=== PATIENT | female | born 1950 | race Caucasian/White ===

== ENCOUNTER 2019-10-15 14:11 | Inpatient (IN) ==
[2019-10-15] MEDS ORDERED: *HR* Warfarin 5 MG TABLET PO SCH (19:00)
[2019-10-15] MEDS: amLODIPine 5 MG TABLET PO SCH (20:25)
[2019-10-15] MEDS: *HR* Metformin 500 MG TABLET PO SCH (20:25)
[2019-10-15] MEDS: Gabapentin 300 MG CAPSULE PO SCH (20:25)
[2019-10-15] MEDS: Acetaminophen 325 MG TABLET PO PRN (20:50)
[2019-10-15] MEDS ORDERED: Insulin DETEMIR 100 UNIT/ML per UNIT SQ ONE ×2 (21:00)
[2019-10-16] MEDS: Acetaminophen 325 MG TABLET PO PRN (05:57)
[2019-10-16 06:22] LABS: Basophils % 0.5 %; Eosinophils # 0.2 K/mcL (0.0-0.6); Eosinophils % 2.7 %; Hematocrit 30.3 % (35.3-44.9); Hemoglobin 10.2 g/dL (11.5-15.4); Immature Granulocytes % 0.4 % (0-4); Lymphocytes # 2.9 K/mcL (0.6-4.6); Lymphocytes % 39.6 %; Mean Corpuscular HGB Conc 33.7 g/dL (31.6-35.5); Mean Corpuscular Hemoglobin 31.5 pg (28.0-33.3); Mean Corpuscular Volume 93.5 fL (83.0-100.0); Mean Platelet Volume 10.2 fL (9.4-12.4); Monocytes # 0.6 K/mcL (0.0-1.3); Monocytes % 8.3 %; Neutrophils # 3.6 K/mcL (1.6-8.9); Platelet Count 243 K/mcL (140-400); Red Blood Count 3.24 M/mcL (3.82-4.97); Red Cell Distribution Width 11.8 % (11.5-14.5); Segmented Neutrophils % 48.5 %; White Blood Count 7.4 K/mcL (4.3-11.1)
[2019-10-16 06:29] LABS: INR 1.3; Prothrombin Time 14.4 Seconds (9.4-12.1)
[2019-10-16 06:42] LABS: Calcium 8.8 mg/dL (8.6-10.3); Potassium 4.8 mEq/L (3.5-5.1)
[2019-10-16] MEDS: *HR* Metformin 500 MG TABLET PO SCH ×2 (08:52→16:58)
[2019-10-16] MEDS: Gabapentin 300 MG CAPSULE PO SCH ×2 (08:52→20:55)
[2019-10-16] MEDS: Lisinopril 20 MG TABLET PO SCH (08:52)
[2019-10-16] MEDS: Isosorbide MONOnitrate (24 HR) 60 MG TAB.ER.24H PO SCH (08:52)
[2019-10-16] MEDS: Insulin DETEMIR 100 UNIT/ML X5UNITS SQ SCH ×2 (08:54→20:55)
[2019-10-16] MEDS: (Ezetimibe 10 MG) PO SCH (09:06)
[2019-10-16] MEDS: *HR* Enoxaparin 100 MG/ML SYRINGE SQ SCH (16:57)
[2019-10-16] MEDS ORDERED: Warfarin perPT PO PRN (18:00)
[2019-10-16] MEDS ORDERED: *HR* Warfarin 5 MG TABLET PO ONE (18:00)
[2019-10-16] MEDS: amLODIPine 5 MG TABLET PO SCH (20:54)
[2019-10-16] MEDS ORDERED: Insulin DETEMIR 100 UNIT/ML X5UNITS SQ SCH (21:00)
[2019-10-17] MEDS: *HR* Enoxaparin 100 MG/ML SYRINGE SQ SCH ×2 (05:55→17:02)
[2019-10-17 06:45] LABS: INR 1.6; Prothrombin Time 17.9 Seconds (9.4-12.1)
[2019-10-17] MEDS ORDERED: D5% in Water 1,000 ML IVC PRN (07:10)
[2019-10-17] MEDS ORDERED: *HR* Dextrose 50 % in Water (Syg) 50 ML SYRINGE IVP PRN (07:10)
[2019-10-17] MEDS ORDERED: Dextrose Gel 15 GM/37.5 ML TUBE PO PRN ×2 (07:10)
[2019-10-17] MEDS: Isosorbide MONOnitrate (24 HR) 60 MG TAB.ER.24H PO SCH (09:52)
[2019-10-17] MEDS: Gabapentin 300 MG CAPSULE PO SCH ×2 (09:52→21:43)
[2019-10-17] MEDS: Insulin DETEMIR 100 UNIT/ML X5UNITS SQ SCH ×2 (09:53→21:43)
[2019-10-17] MEDS: Lisinopril 20 MG TABLET PO SCH (09:53)
[2019-10-17] MEDS: Insulin LISPRO 300 UNITS/3 ML VIAL SQ SCH ×5 (11:20→21:43)
[2019-10-17] MEDS: (Ezetimibe 10 MG) PO SCH (11:21)
[2019-10-17] MEDS ORDERED: *HR* Warfarin 5 MG TABLET PO ONE (18:00)
[2019-10-17] MEDS: amLODIPine 5 MG TABLET PO SCH (21:42)
[2019-10-18] MEDS: *HR* Enoxaparin 100 MG/ML SYRINGE SQ SCH ×2 (05:32→17:16)
[2019-10-18 07:21] LABS: INR 1.9; Prothrombin Time 21.6 Seconds (9.4-12.1)
[2019-10-18] MEDS: Insulin LISPRO 300 UNITS/3 ML VIAL SQ SCH ×4 (08:05→22:15)
[2019-10-18] MEDS: Isosorbide MONOnitrate (24 HR) 60 MG TAB.ER.24H PO SCH (08:14)
[2019-10-18] MEDS: Lisinopril 20 MG TABLET PO SCH (08:14)
[2019-10-18] MEDS: Gabapentin 300 MG CAPSULE PO SCH ×2 (08:14→22:14)
[2019-10-18] MEDS: (Ezetimibe 10 MG) PO SCH (09:19)
[2019-10-18] MEDS: Insulin DETEMIR 100 UNIT/ML X5UNITS SQ SCH ×2 (11:54→22:14)
[2019-10-18] MEDS ORDERED: *HR* Warfarin 5 MG TABLET PO ONE (18:00)
[2019-10-18] MEDS ORDERED: *HR* Warfarin 3 MG TABLET PO SCH (18:00)
[2019-10-18] MEDS: amLODIPine 5 MG TABLET PO SCH (22:14)
[2019-10-19 05:54] LABS: INR 1.8
[2019-10-19] MEDS: *HR* Enoxaparin 100 MG/ML SYRINGE SQ SCH ×2 (06:33→17:36)
[2019-10-19] MEDS: Insulin LISPRO 300 UNITS/3 ML VIAL SQ SCH ×4 (07:28→20:04)
[2019-10-19] MEDS ORDERED: *HR* Dextrose 50 % in Water (Vial) 50 ML VIAL IVP PRN (08:00)
[2019-10-19] MEDS: (Ezetimibe 10 MG) PO SCH (09:52)
[2019-10-19] MEDS: Insulin DETEMIR 100 UNIT/ML X5UNITS SQ SCH ×2 (09:52→20:03)
[2019-10-19] MEDS: Gabapentin 300 MG CAPSULE PO SCH ×2 (09:52→20:03)
[2019-10-19] MEDS: Isosorbide MONOnitrate (24 HR) 60 MG TAB.ER.24H PO SCH (09:52)
[2019-10-19] MEDS: Lisinopril 20 MG TABLET PO SCH (09:52)
[2019-10-19] MEDS ORDERED: *HR* Warfarin 5 MG TABLET PO ONE (18:00)
[2019-10-19] MEDS: amLODIPine 5 MG TABLET PO SCH (20:03)
[2019-10-20 05:05] LABS: Hematocrit 28.3 % (35.3-44.9); Hemoglobin 9.7 g/dL (11.5-15.4); Mean Corpuscular HGB Conc 34.3 g/dL (31.6-35.5); Mean Corpuscular Volume 93.4 fL (83.0-100.0); Mean Platelet Volume 10.7 fL (9.4-12.4); Platelet Count 215 K/mcL (140-400); Red Blood Count 3.03 M/mcL (3.82-4.97); Red Cell Distribution Width 12.1 % (11.5-14.5)
[2019-10-20 05:14] LABS: Prothrombin Time 23.1 Seconds (9.4-12.1)
[2019-10-20] MEDS: *HR* Enoxaparin 100 MG/ML SYRINGE SQ SCH ×3 (06:07→23:25)
[2019-10-20 07:48] LABS: Calcium 8.7 mg/dL (8.6-10.3); Potassium 4.7 mEq/L (3.5-5.1)
[2019-10-20] MEDS: Insulin LISPRO 300 UNITS/3 ML VIAL SQ SCH ×4 (08:18→20:11)
[2019-10-20] MEDS: Insulin DETEMIR 100 UNIT/ML X5UNITS SQ SCH ×2 (08:38→20:11)
[2019-10-20] MEDS: Gabapentin 300 MG CAPSULE PO SCH ×2 (09:26→20:10)
[2019-10-20] MEDS: Lisinopril 20 MG TABLET PO SCH (09:26)
[2019-10-20] MEDS: Isosorbide MONOnitrate (24 HR) 60 MG TAB.ER.24H PO SCH (09:26)
[2019-10-20] MEDS: (Ezetimibe 10 MG) PO SCH (09:26)
[2019-10-20 14:41] LABS: Hematocrit 29.9 % (35.3-44.9); Hemoglobin 10.1 g/dL (11.5-15.4)
[2019-10-20] MEDS: Sulfamethoxazole/Trimeth DS 1 EACH TABLET PO SCH ×2 (17:20→20:14)
[2019-10-20] MEDS ORDERED: *HR* Warfarin 5 MG TABLET PO ONE (18:00)
[2019-10-20] MEDS: amLODIPine 5 MG TABLET PO SCH (20:10)
[2019-10-21 06:52] LABS: Hematocrit 28.6 % (35.3-44.9); Hemoglobin 9.7 g/dL (11.5-15.4); Mean Corpuscular HGB Conc 33.9 g/dL (31.6-35.5); Mean Corpuscular Hemoglobin 31.5 pg (28.0-33.3); Mean Corpuscular Volume 92.9 fL (83.0-100.0); Platelet Count 237 K/mcL (140-400); Red Blood Count 3.08 M/mcL (3.82-4.97); Red Cell Distribution Width 12.2 % (11.5-14.5); White Blood Count 6.9 K/mcL (4.3-11.1)
[2019-10-21 07:00] LABS: INR 2.1; Prothrombin Time 23.5 Seconds (9.4-12.1)
[2019-10-21 07:11] LABS: Calcium 8.6 mg/dL (8.6-10.3); Potassium 4.7 mEq/L (3.5-5.1)
[2019-10-21] MEDS: Insulin LISPRO 300 UNITS/3 ML VIAL SQ SCH ×4 (08:09→21:38)
[2019-10-21] MEDS: Insulin DETEMIR 100 UNIT/ML X5UNITS SQ SCH ×2 (08:15→21:39)
[2019-10-21] MEDS: Gabapentin 300 MG CAPSULE PO SCH ×2 (09:10→21:38)
[2019-10-21] MEDS: Isosorbide MONOnitrate (24 HR) 60 MG TAB.ER.24H PO SCH (09:10)
[2019-10-21] MEDS: Sulfamethoxazole/Trimeth DS 1 EACH TABLET PO SCH ×2 (09:10→21:38)
[2019-10-21] MEDS: Lisinopril 20 MG TABLET PO SCH (09:10)
[2019-10-21] MEDS ORDERED: 0.9 % Sodium Chloride 1,000 ML IVC SCH (11:30)
[2019-10-21] MEDS: (Ezetimibe 10 MG) PO SCH (11:33)
[2019-10-21] MEDS: Acetaminophen 325 MG TABLET PO PRN (12:07)
[2019-10-21] MEDS: *HR* Metformin 500 MG TABLET PO SCH (16:48)
[2019-10-21] MEDS ORDERED: *HR* Warfarin 5 MG TABLET PO ONE (18:00)
[2019-10-21] MEDS: amLODIPine 5 MG TABLET PO SCH (21:38)
[2019-10-22 05:46] LABS: INR 2.4; Prothrombin Time 26.8 Seconds (9.4-12.1)
[2019-10-22] MEDS: Insulin LISPRO 300 UNITS/3 ML VIAL SQ SCH ×4 (07:58→21:04)
[2019-10-22] MEDS: *HR* Metformin 500 MG TABLET PO SCH (08:53)
[2019-10-22] MEDS: Isosorbide MONOnitrate (24 HR) 60 MG TAB.ER.24H PO SCH (08:53)
[2019-10-22] MEDS: Sulfamethoxazole/Trimeth DS 1 EACH TABLET PO SCH (08:53)
[2019-10-22] MEDS: Gabapentin 300 MG CAPSULE PO SCH ×2 (08:53→21:04)
[2019-10-22] MEDS: Insulin DETEMIR 100 UNIT/ML X5UNITS SQ SCH ×2 (08:54→21:04)
[2019-10-22] MEDS: (Ezetimibe 10 MG) PO SCH (09:01)
[2019-10-22 10:21] LABS: Hematocrit 27.6 % (35.3-44.9); Hemoglobin 9.1 g/dL (11.5-15.4); Mean Corpuscular Hemoglobin 31.3 pg (28.0-33.3); Mean Corpuscular Volume 94.8 fL (83.0-100.0); Mean Platelet Volume 10.9 fL (9.4-12.4); Platelet Count 251 K/mcL (140-400); Red Blood Count 2.91 M/mcL (3.82-4.97); Red Cell Distribution Width 12.6 % (11.5-14.5); White Blood Count 6.9 K/mcL (4.3-11.1)
[2019-10-22 10:37] LABS: Calcium 8.6 mg/dL (8.6-10.3)
[2019-10-22] MEDS ORDERED: *HR* Warfarin 5 MG TABLET PO ONE (18:00)
[2019-10-22] MEDS ORDERED: 0.9 % Sodium Chloride 1,000 ML IVC SCH (18:15)
[2019-10-22] MEDS ORDERED: Sulfamethoxazole/Trimeth DS 1 EACH TABLET PO SCH (21:00)
[2019-10-22] MEDS: amLODIPine 5 MG TABLET PO SCH (21:03)
[2019-10-23 06:12] LABS: Hematocrit 28.1 % (35.3-44.9); Hemoglobin 9.6 g/dL (11.5-15.4); Mean Corpuscular HGB Conc 34.2 g/dL (31.6-35.5); Mean Corpuscular Hemoglobin 32.8 pg (28.0-33.3); Mean Corpuscular Volume 95.9 fL (83.0-100.0); Mean Platelet Volume 10.8 fL (9.4-12.4); Platelet Count 260 K/mcL (140-400); Red Blood Count 2.93 M/mcL (3.82-4.97); Red Cell Distribution Width 12.5 % (11.5-14.5); White Blood Count 8.1 K/mcL (4.3-11.1)
[2019-10-23 06:34] LABS: INR 2.9; Prothrombin Time 32.7 Seconds (9.4-12.1)
[2019-10-23 06:41] LABS: Calcium 8.9 mg/dL (8.6-10.3)
[2019-10-23] MEDS: Insulin LISPRO 300 UNITS/3 ML VIAL SQ SCH ×4 (07:46→22:15)
[2019-10-23] MEDS ORDERED: SODIUM CHLORIDE 0.9% IVPB SCH (09:00)
[2019-10-23] MEDS ORDERED: AZTREONAM IVPB SCH (09:00)
[2019-10-23] MEDS: Insulin DETEMIR 100 UNIT/ML X5UNITS SQ SCH ×2 (09:23→22:13)
[2019-10-23] MEDS: 0.9 % Sodium Chloride 1,000 ML IVC SCH ×2 (09:23→18:21)
[2019-10-23] MEDS: Gabapentin 300 MG CAPSULE PO SCH ×2 (09:24→22:13)
[2019-10-23] MEDS: (Ezetimibe 10 MG) PO SCH (09:24)
[2019-10-23] MEDS: Isosorbide MONOnitrate (24 HR) 60 MG TAB.ER.24H PO SCH (09:24)
[2019-10-23] MEDS: Sennosides 8.6 MG TABLET PO SCH (17:14)
[2019-10-23] MEDS ORDERED: *HR* Warfarin 5 MG TABLET PO ONE (18:00)
[2019-10-23] MEDS: Doxycycline 100 MG in 0.9 % Sodium Chloride Mini Bag 100 ML IVPB SCH (18:22)
[2019-10-23 21:39] LABS: Sodium, Urine 69.3 mEq/L
[2019-10-23] MEDS: amLODIPine 5 MG TABLET PO SCH (22:13)
[2019-10-24] MEDS: 0.9 % Sodium Chloride 1,000 ML IVC SCH (05:01)
[2019-10-24] MEDS: Doxycycline 100 MG in 0.9 % Sodium Chloride Mini Bag 100 ML IVPB SCH (05:44)
[2019-10-24 06:25] LABS: INR 2.7; Prothrombin Time 30.9 Seconds (9.4-12.1)
[2019-10-24] MEDS: Insulin LISPRO 300 UNITS/3 ML VIAL SQ SCH ×2 (07:49→11:48)
[2019-10-24 09:19] VITALS: BP 129/56
[2019-10-24] MEDS: (Ezetimibe 10 MG) PO SCH (09:32)
[2019-10-24 10:28] LABS: Hematocrit 27.7 % (35.3-44.9); Hemoglobin 9.2 g/dL (11.5-15.4); Mean Corpuscular HGB Conc 33.2 g/dL (31.6-35.5); Mean Corpuscular Hemoglobin 31.7 pg (28.0-33.3); Mean Corpuscular Volume 95.5 fL (83.0-100.0); Mean Platelet Volume 10.6 fL (9.4-12.4); Platelet Count 252 K/mcL (140-400); Red Cell Distribution Width 12.3 % (11.5-14.5); White Blood Count 8.3 K/mcL (4.3-11.1)
[2019-10-24] MEDS: Sennosides 8.6 MG TABLET PO SCH (10:33)
[2019-10-24] MEDS: Gabapentin 300 MG CAPSULE PO SCH (10:33)
[2019-10-24] MEDS: Isosorbide MONOnitrate (24 HR) 60 MG TAB.ER.24H PO SCH (10:34)
[2019-10-24] MEDS: Insulin DETEMIR 100 UNIT/ML X5UNITS SQ SCH (10:34)
[2019-10-24 10:49] LABS: Calcium 8.7 mg/dL (8.6-10.3); Potassium 4.8 mEq/L (3.5-5.1)
[2019-10-24] MEDS ORDERED: *HR* Warfarin 5 MG TABLET PO ONE (18:00)
== END 2019-10-24 16:51 | disposition home or self-care (01) ==
LOC: INPPIK 18:39
PROVIDERS: ADMIT Family Medicine; ATTEND Family Medicine